=== PATIENT | female | born 1955 | race Caucasian/White ===

== ENCOUNTER 2019-01-03 11:25 | Day surgery (SDC) | payer BC ==
[~2019-01-03 11:25] MED LIST: Bupivacaine 0.25% SDV* 30 ML ONE
[2019-01-03 14:32] VITALS: BP 128/85
--- NOTE | 2019-01-03 23:15 | OP ---
DATE OF OPERATION: 01/03/19 - [facility] DATE OF : 57 SURGEON: Pj Kendrick MD PROFESSOR OF SOCIAL WORK: ANTHONY Maguire ANESTHESIOLOGIST: None. ANESTHESIA: Local only with 0.25% plain Marcaine for digital block. PRE-OP DIAGNOSIS: Left index finger periarticular distal interphalangeal mass. POST-OP DIAGNOSIS: Left index finger periarticular distal interphalangeal mass. OPERATIVE PROCEDURE: Excision of deep left index finger mass consistent with giant cell tumor. INDICATIONS: Helen had the mass excised before, it was giant cell tumor. It has recurred. We talked about risks and benefits including the the risk to the ulnar digital nerve. She wanted to proceed. ESTIMATED BLOOD LOSS: 3 mL. COMPLICATIONS: None. FINDINGS: See above and below. DESCRIPTION OF PROCEDURE: Helen was seen in the preoperative holding area. The correct site, side and procedure were identified. I anesthetized the finger with 0.25% plain Marcaine. We came back to the operating room. The arm was prepped and draped in the usual fashion and a time-out was performed. A figure tourniquet was placed. A longitudinal mid axial incision was made over the ulnar aspect of the left index finger DIP joint. Full-thickness flaps were raised off the mass. The digital nerve was identified and retracted radially and palmarly. I was able to use the [place] blade. I performed a marginal excision. I went down deep right under the periosteum. There was multiple lobules. There was an lobule extending down towards the DIP joint right off the volar plate and the ulnar collateral ligament, but looked like it stopped at the tendon sheath. I went ahead and excised this all. I used the rongeur and a curette. Another equipment to fully try to remove any remaining cellular tissue. I used the bipolar cautery to cauterize the area around the tumor. The wound was irrigated out. The skin was closed with 4-0 nylon suture. All the deep soft tissue structures were preserved. I had her flex and extend the finger. The tendon was nicely intact. Soft dressing was applied, and she was taken to the recovery room in stable condition. [id number]/[facility] #: [id number] [facility]
== END 2019-01-03 14:37 | disposition home or self-care (01) ==
LOC: OREAST 11:25
PROVIDERS: ATTEND Orthopaedic Surgery Hand Surgery
DX: D48.1 Neoplasm of uncertain behavior of connective and other soft tissue (principal); K21.9 Gastro-esophageal reflux disease without esophagitis; M19.90 Unspecified osteoarthritis, unspecified site
CPT/HCPCS: 88304; J3490